=== PATIENT | female | born 1960 | race Caucasian/White ===

== ENCOUNTER 2022-06-12 14:12 | Outpatient (REF) | payer MEDICARE, SELFPAY ==
[2022-06-17 11:30] LABS: Enterovirus PCR Negative (Negative); Specimen Source HAND
== END 2022-06-12 14:13 | disposition home or self-care (01) ==
LOC: NCHCN 14:12
PROVIDERS: Visit Provider Physician Assistant Medical
DX: R21 Rash and other nonspecific skin eruption (principal); L27.1 Localized skin eruption due to drugs and medicaments taken internally
CPT/HCPCS: 86695; 86696; 87498

== ENCOUNTER 2022-06-13 17:35 | Outpatient (REF) | payer MEDICARE, SELFPAY ==
[2022-06-14 14:47] LABS: HSV 1 DNA Result Negative (Negative); HSV 2 DNA Result Negative (Negative); Varicella Zoster DNA Result Negative ((See Note))
== END 2022-06-13 17:36 | disposition home or self-care (01) ==
LOC: LBN 17:35
PROVIDERS: Visit Provider Physician Assistant Medical
DX: R21 Rash and other nonspecific skin eruption (principal)
CPT/HCPCS: 87529; 87798

== ENCOUNTER 2022-09-10 15:32 | Outpatient (REF) | payer MEDICARE, SELFPAY ==
[2022-09-10 14:14] LABS: Abs Immature Grans 0.02 10^3/uL (0.0-0.06); Absolute Basophil Count 0.05 10^3/uL (0.0-0.2); Absolute Eosinophil Count 0.21 10^3/uL (0.0-0.7); Absolute Lymphocyte Count 1.71 10^3/uL (1.2-3.4); Absolute Monocyte Count 0.45 10^3/uL (0.1-0.8); Basophils % 0.8; Eosinophils % 3.2; HGB 13.9 g/dL (11.2-15.7); Immature Grans % 0.3; Lymphocytes % 25.8; MCH 30.2 pg (27.0-33.0); MCHC 33.9 % (32.0-36.0); MCV 89 fL (80-95); MPV 10.8 fL (8.0-11.0); Monocytes % 6.8; Neutrophils % 63.1; Platelet Count 241 10^3/uL (130-400); RBC 4.61 10^6/uL (3.93-5.22); RDW 13.1 % (11.7-14.6); RDW-SD 42.5 fL; WBC 6.64 10^3/uL (4.4-10.8)
[2022-09-10 14:27] LABS: ALT 26 U/L (14-59); AST 14 U/L (15-37); Albumin 4.3 g/dL (3.4-5.0); Alkaline Phosphatase 105 U/L (46-116); Anion Gap 9.5 mmol/L (3-11); BUN 18 mg/dL (7-18); Bilirubin, Total 0.5 mg/dL (0.2-1.0); C-Reactive Protein 0.32 mg/dL (0.0-0.3); CO2 26.5 mmol/L (21.0-32.0); CREATININE 0.7 mg/dL (0.55-1.02); Chloride 105 mmol/L (98-107); Estimated GFR 97.12 (mL/min/1.73m2); Glucose 99 mg/dL (74-106); Potassium 4.1 mmol/L (3.5-5.1); Sodium 141 mmol/L (136-145); Total Protein 7.2 g/dL (6.4-8.2)
[2022-09-10 14:32] LABS: Lipase > 375 U/L (16-77)
== END 2022-09-10 15:33 | disposition home or self-care (01) ==
LOC: LBN 15:32
PROVIDERS: Visit Provider Nurse Practitioner Family
DX: R19.7 Diarrhea, unspecified (principal); R19.4 Change in bowel habit
CPT/HCPCS: 80053; 83690; 85025; 86140

== ENCOUNTER 2022-09-11 14:57 | Emergency (ER) | payer MEDICARE, SELFPAY ==
[2022-09-11 15:08] VITALS: BP 149/62; PULSE 89; RESP 16; O2SAT 97
--- NOTE | 2022-09-11 15:37 | DI.US_ITS ---
Exam(s) US ABDOMEN LIMITED EXAM: US ABDOMEN LIMITED CLINICAL HISTORY: epigastric pain, elevated lipase at urgent care TECHNIQUE: Ultrasound abdomen performed using standard protocol. COMPARISON: No exams were available for comparison FINDINGS: There is no ascites evident. LIVER: Somewhat hyperechoic indicating steatosis. There are no discrete focal hepatic lesions identi fied. GALLBLADDER/BILIARY: There are no gallstones. No gallbladder wall edema nor pericholecystic fluid. The common hepatic duct isnot dilated, measuring 4mm at the level of joni hepatis. PANCREAS: There is no evidence of pancreatic mass nor dilatation of the pancreatic duct. No no perip ancreatic fluid. The pancreas appears unremarkable. RIGHT KIDNEY:There is 7 millimeter echogenic focus at the midpole level-probable calculus. No hydron ephrosis. No cysts nor solid masses in the kidney. No perinephric fluid IMPRESSION: 1. No evidence of cholelithiasis nor dilatation of the biliary tree. 2. Hepatic steatosis. 3. 7 millimeter nonobstructive calculus in the right kidney. DATA REPOSITORY:
[2022-09-11 16:00] LABS: Abs Immature Grans 0.01 10^3/uL (0.0-0.06); Absolute Basophil Count 0.04 10^3/uL (0.0-0.2); Absolute Eosinophil Count 0.16 10^3/uL (0.0-0.7); Absolute Lymphocyte Count 1.89 10^3/uL (1.2-3.4); Absolute Monocyte Count 0.52 10^3/uL (0.1-0.8); Absolute Neutrophil Count 4.34 10^3/uL (1.2-6.7); Basophils % 0.6; Eosinophils % 2.3; HCT 38.8 % (36.0-46.0); HGB 13.4 g/dL (11.2-15.7); Immature Grans % 0.1; Lymphocytes % 27.2; MCH 30.3 pg (27.0-33.0); MCHC 34.5 % (32.0-36.0); MCV 88 fL (80-95); MPV 10.1 fL (8.0-11.0); Monocytes % 7.5; Neutrophils % 62.3; Platelet Count 225 10^3/uL (130-400); RBC 4.42 10^6/uL (3.93-5.22); RDW 13.2 % (11.7-14.6); RDW-SD 42.8 fL; WBC 6.96 10^3/uL (4.4-10.8)
[2022-09-11 16:14] LABS: ALT 25 U/L (14-59); AST 12 U/L (15-37); Alkaline Phosphatase 88 U/L (46-116); Anion Gap 9.7 mmol/L (3-11); BUN 17 mg/dL (7-18); Bilirubin, Total 0.4 mg/dL (0.2-1.0); CO2 27.3 mmol/L (21.0-32.0); CREATININE 0.8 mg/dL (0.55-1.02); Calcium 9.9 mg/dL (8.5-10.1); Chloride 103 mmol/L (98-107); Estimated GFR 82.74 (mL/min/1.73m2); Glucose 103 mg/dL (74-106); Lipase 166 U/L (16-77); Magnesium 1.8 mg/dL (1.8-2.4); Potassium 3.5 mmol/L (3.5-5.1); Sodium 140 mmol/L (136-145); Total Protein 7.4 g/dL (6.4-8.2)
--- NOTE | 2022-09-11 16:39 | ED.GENADUL_ITS ---
Discharge Plan Disposition Patient Disposition: Home Condition: Good Discharge Details Clinical Impression: Gastroenteritis Primary Care Provider: Unknown,Unknown ED Provider: Mary Chatman Home Meds and New Rx's Prescriptions: No Action metformin 500 mg Tablet 500 mg PO BID atorvastatin 20 mg Tablet 40 mg PO DAILY lorazepam 0.5 mg Tablet 0.5 mg PO DAILY PRN losartan 100 mg Tablet 100 mg PO DAILY fenofibrate 40 mg Tablet 40 mg PO DAILY Discharge Instructions Instructions: Gastroenteritis (ED) Additional Instructions: Call your primary care provider tomorrow to schedule an appointment to follow up on your visit today. Return to the emergency department for new or worsening symptoms. Medical Decision Making 61yo F with HTN, HLD, prediabetes, presenting from urgent care for elevated lipase. Has had 6 days of mild abdominal pain, diarrhea, and nausea with no vomiting. Symptoms have been improving. Vital signs and physical exam reassu ring, no abdominal tenderness on exam (patient reports mild epigastric and LLQ pain). Appears well hydrated. Low suspicion for surgical intraabdominal process, obstruction, etc; unlikely active pancreatitis given lack of tenderness but will evaluated with labs/US. Labs reviewed as below, marginally elevated lipase at 166, CBC & CMP otherwise reassuring, no significant electrolyte abnormalities. UA with no infection, + trace ketones consistent with decreased PO. PO challenged and tolerated well. Patient states she feels okay to go home. Has prescription for zofran already. Discharged home; discharge instructions including return precautions were reviewed with patient who verbalized understanding. All questions were answered and they are in full agreement with the plan. Imaging Data Radiologic Study: Imaging: Ultrasound Lab Data Lab results reviewed: Yes I reviewed the patient's lab results. Lab results narrative: Laboratory Tests Range/Units 09/11/22 09/11/22 15:55 15:55 WBC (4.4-10.8) 10^3/uL 6.96 RBC (3.93-5.22) 10^6/uL 4.42 Hgb (11.2-15.7) g/dL 13.4 Hct (36.0-46.0) % 38.8 MCV (80-95) fL 88 MCH (27.0-33.0) pg 30.3 MCHC (32.0-36.0) % 34.5 RDW (11.7-14.6) % 13.2 Plt Count (130-400) 10^3/uL 225 MPV (8.0-11.0) fL 10.1 Immature Gran % 0.1 Neutrophils % 62.3 Lymphocytes % 27.2 Monocytes % 7.5 Eosinophils % 2.3 Basophils % 0.6 Nucleated RBC % (0.0-0.3) % 0.0 Absolute Neutrophils (1.2-6.7) 10^3/uL 4.34 Absolute Lymphocytes (1.2-3.4) 10^3/uL 1.89 Absolute Monocytes (0.1-0.8) 10^3/uL 0.52 Absolute Eosinophils (0.0-0.7) 10^3/uL 0.16 Absolute Basophils (0.0-0.2) 10^3/uL 0.04 Sodium (136-145) mmol/L 140 Potassium (3.5-5.1) mmol/L 3.5 Chloride (98-107) mmol/L 103 Carbon Dioxide (21.0-32.0) mmol/L 27.3 Anion Gap (3-11) mmol/L 9.7 BUN (7-18) mg/dL 17 Creatinine (0.55-1.02) mg/dL 0.8 Est GFR (CKD-EPI 2020) (mL/min/1.73m2) 82.74 Glucose (74-106) mg/dL 103 Calcium (8.5-10.1) mg/dL 9.9 Magnesium (1.8-2.4) mg/dL 1.8 Total Bilirubin (0.2-1.0) mg/dL 0.4 AST (15-37) U/L 12 L ALT (14-59) U/L 25 Alkaline Phosphatase (46-116) U/L 88 Total Protein (6.4-8.2) g/dL 7.4 Albumin (3.4-5.0) g/dL 4.0 Lipase (16-77) U/L 166 H HPI General Mode of arrival: ambulatory . Date/Time Provider Initiated Documentation: 09/11/22 15:13 . Limitations to Documentation: no limitations . Information obtained by: patient . HPI Narrative: 61yo F with HTN, HLD, prediabetes, breast cancer s/p lumpectomy and radiation, presenting from urgent care for elevated lipase. Presented there for 6 days of diarrhea with associated mild abdominal pain as well as nausea. Non-bloody stool. Diarrhea has become less frequent, 1-2 times a day. Abdominal pain is epigastric and her LLQ, non-radiating, 2/10, improving. Has nausea, no vomiti ng, does have decreased PO. Has been doing okay with fluids. No dysuria, hematuria, or fevers. Feels generally unwell and a little lightedheaded when standing, no syncope. No known sick contacts but a stomach bug has been going around her apartment building. She is otherwise in her usual state of health with no rash, chest pain, shortness of breath, LE edema, or other concerrns. Related Data Home Medications Medication Instructions Recorded Confirmed atorvastatin 20 mg tablet 40 mg PO DAILY 09/11/22 09/11/22 fenofibrate 40 mg tablet 40 mg PO DAILY 09/11/22 09/11/22 lorazepam 0.5 mg tablet 0.5 mg PO DAILY PRN 09/11/22 09/11/22 losartan 100 mg tablet 100 mg PO DAILY 09/11/22 09/11/22 metformin 500 mg tablet 500 mg PO BID 09/11/22 09/11/22 Allergies Allergy/AdvReac Type Severity Reaction Status Date / Time gabapentin AdvReac Severe Unverified 09/11/22 15:17 trazodone AdvReac Intermediate Unverified 09/11/22 15:17 General Stated Complaint: Abd Prob JAMISON: 3 Review of Systems Narrative: see HPI PFSH All Active Problems (Updated 09/11/22 @ 17:32 by Mary Chatman MD) Gastroenteritis (Acute) Social History Smoking/Tobacco Use Status: Current every day Tobacco Type: cigarettes Smoking risk assessment performed?: Yes Alcohol Intake: current Substance use type: does not use Housing: apartment Do you feel safe at home: Yes Do you feel safe in your relationship?: Yes Additional Social history: lots of drug activity outside of apartment. Feels unsafe becasue of this Exam Narrative Exam Narrative: General: Alert, well appearing, well nourished, in no acute distress. Head: Normocephalic, atraumatic Neck: Trachea midline, Neck supple. ENT: MMM. No oropharyngeal lesions or exudate. Cardiac: RRR, no murmurs appreciated Resp: No respiratory distress. CTAB. Abd: Soft, non-distended, nontender : No suprapubic tenderness. No CVA tenderness. Extremities: No deformities. No peripheral edema. Neurologic: GCS 15. Moves all extremities freely against gravity Course Vital Signs Vital signs: Vital Signs Pulse 89 09/11/22 15:08 Respiratory Rate 16 09/11/22 15:08 Blood Pressure 149/62 H 09/11/22 15:08 Pulse Oximetry 97 09/11/22 15:08 Pulse 89 09/11/22 15:08 Respiratory Rate 16 09/11/22 15:08 Respiratory Effort Normal, Non-Labored 09/11/22 15:11 Blood Pressure 149/62 H 09/11/22 15:08 Pulse Oximetry 97 09/11/22 15:08 Oxygen Delivery Method Room Air 09/11/22 15:08 Oxygen Flow Rate 0 09/11/22 15:08 Pain Level 2 09/11/22 15:08 Lab/Test Results Lab/Test Results: Laboratory Tests Range/Units 09/11/22 09/11/22 15:55 15:55 WBC (4.4-10.8) 10^3/uL 6.96 RBC (3.93-5.22) 10^6/uL 4.42 Hgb (11.2-15.7) g/dL 13.4 Hct (36.0-46.0) % 38.8 MCV (80-95) fL 88 MCH (27.0-33.0) pg 30.3 MCHC (32.0-36.0) % 34.5 RDW (11.7-14.6) % 13.2 Plt Count (130-400) 10^3/uL 225 MPV (8.0-11.0) fL 10.1 Immature Gran % 0.1 Neutrophils % 62.3 Lymphocytes % 27.2 Monocytes % 7.5 Eosinophils % 2.3 Basophils % 0.6 Nucleated RBC % (0.0-0.3) % 0.0 Absolute Neutrophils (1.2-6.7) 10^3/uL 4.34 Absolute Lymphocytes (1.2-3.4) 10^3/uL 1.89 Absolute Monocytes (0.1-0.8) 10^3/uL 0.52 Absolute Eosinophils (0.0-0.7) 10^3/uL 0.16 Absolute Basophils (0.0-0.2) 10^3/uL 0.04 Sodium (136-145) mmol/L 140 Potassium (3.5-5.1) mmol/L 3.5 Chloride (98-107) mmol/L 103 Carbon Dioxide (21.0-32.0) mmol/L 27.3 Anion Gap (3-11) mmol/L 9.7 BUN (7-18) mg/dL 17 Creatinine (0.55-1.02) mg/dL 0.8 Est GFR (CKD-EPI 2020) (mL/min/1.73m2) 82.74 Glucose (74-106) mg/dL 103 Calcium (8.5-10.1) mg/dL 9.9 Magnesium (1.8-2.4) mg/dL 1.8 Total Bilirubin (0.2-1.0) mg/dL 0.4 AST (15-37) U/L 12 L ALT (14-59) U/L 25 Alkaline Phosphatase (46-116) U/L 88 Total Protein (6.4-8.2) g/dL 7.4 Albumin (3.4-5.0) g/dL 4.0 Lipase (16-77) U/L 166 H
[2022-09-11 17:28] LABS: Bilirubin Negative (Negative); Blood Negative (Negative); Clarity Clear (Clear); Glucose Negative (Negative); Ketones Trace mg/dL (Negative); Leukocyte Esterase Negative (Negative); Nitrite Negative (Negative); Specific Gravity 1.025 (1.005-1.025); Urobilinogen 0.2 mg/dL (Up to 0.2); pH 5.5 (5-8)
[2022-09-11 18:00] VITALS: BP 139/75; PULSE 87; RESP 16; O2SAT 96
== END 2022-09-11 18:05 | disposition home or self-care (01) ==
LOC: ER 18:05
PROVIDERS: Emergency Provider Student in an Organized Health Care Education/Training Program
DX: K52.9 Noninfective gastroenteritis and colitis, unspecified (principal)
CPT/HCPCS: 80053; 83690; 99284; 76705; 81003; 83735; 85025; 99283

== ENCOUNTER 2023-02-10 14:59 | Emergency (ER) | payer MEDICARE, SELFPAY ==
[2023-02-10 15:01] VITALS: BP 190/74; PULSE 96; RESP 20; TEMP 36.4; O2SAT 99
--- NOTE | 2023-02-10 15:43 | ED.GENADUL_ITS ---
Discharge Plan Disposition Patient Disposition: Home Discharge Details Clinical Impression: URI (upper respiratory infection), Otitis media Primary Care Provider: Vincenzo Piña ED Provider: Jermaine Desai Home Meds and New Rx's Prescriptions: New azithromycin 250 mg tablet See Rx Instructions .ROUTE .COMPLEX Qty: 6 0RF Rx Instructions: For 250 mg dose pack: take 500 mg today (day 1), then 250 mg for 4 days (days 2-5) Continued albuterol sulfate 90 mcg/actuation HFA aerosol inhaler 2 puff inhalation Q6H PRN (Reason: shortness of breath or wheezing) Qty: 8.5 6RF fenofibrate nanocrystallized 48 mg tablet 48 mg PO DAILY Qty: 90 3RF atorvastatin 40 mg tablet 40 mg PO QHS Qty: 90 3RF losartan 100 mg tablet 100 mg PO DAILY Qty: 90 3RF metformin 500 mg tablet 500 mg PO BID Qty: 180 3RF lorazepam 0.5 mg Tablet 0.5 mg PO DAILY PRN Discharge Instructions Instructions: Ear Infection (ED), Upper Respiratory Infection (ED) Additional Instructions: You may continue to use [id number] pain medication or cough and cold medication that matches your symptoms. You may hold off on starting antibiotic for the next 24 hours but if your symptoms do not improve please start the medication and take as prescribed. Return to the emergency department for any new or significant worsening of symptoms otherwise follow-up with your primary care provider if not improving in the next week. Referrals: Vincenzo Piña DO [Primary Care Provider] - Medical Decision Making Patient presenting to the emergency department for chief complaint of right ear pain. She reports yesterday evening she started having significant tinnitus and then decreased hearing started. Patient does state yesterday morning that she started also having nasal congestion, mild sore throat, and intermittent cough. Patient has significant past medical history of breast cancer in remission, anxiety, and prediabetes. Physical exam shows stable appearing patient that is afebrile, tachycardia noted slightly on vital signs but not upon my assessment, no signs of distress, patient does have some clear fluid behind left TM and slight purulent fluid noted behind right. Exam is otherwise noncontributory with no obvious findings. I suspect viral illness but early otitis media is also considered. Will perform COVID flu RSV testing and pending results will give ibuprofen. Patient negative for COVID flu RSV. Will recommend conservative management of viral type symptoms but given purulent drainage but no loss of landmarks do not feel that pocket prescription may be beneficial to patient if not improving in the next 24 hours. Patient stated clear understanding of recommendation to attempt conservative management and if this resolves her symptoms that she does not need to start the antibiotic otherwise we will start the antibiotic and take full course. Patient does have penicillin allergy so given Z-Everardo. after discussion of diagnosis and plan of care patient has no further needs, questions, or concerns and states clear understanding to return to the emergency department for any worsening symptoms. This documentation was generated using [employer] system, please disregard any oddities of phrase or misspellings. Lab Data Lab results reviewed: Yes I reviewed the patient's lab results. HPI General Mode of arrival: ambulatory . Date/Time Provider Initiated Documentation: 02/10/23 15:05 . Limitations to Documentation: no limitations . Information obtained by: patient and RN notes reviewed . History of Present Illness 62 year old F presents to the emergency department with the chief complaint of Right ear pain, described as moderate, Patient started experiencing this day(s) (1) and it has been constant. Related Data Home Medications Medication Instructions Recorded Confirmed lorazepam 0.5 mg tablet 0.5 mg PO DAILY PRN 09/11/22 02/10/23 albuterol sulfate 90 mcg/actuation 2 puff inhalation Q6H PRN 01/28/23 02/10/23 aerosol inhaler shortness of breath or wheezing #8.5 grams atorvastatin 40 mg tablet 40 mg PO QHS #90 tabs 01/28/23 02/10/23 fenofibrate nanocrystallized 48 mg 48 mg PO DAILY #90 tabs 01/28/23 02/10/23 tablet losartan 100 mg tablet 100 mg PO DAILY #90 tabs 01/28/23 02/10/23 metformin 500 mg tablet 500 mg PO BID #180 tabs 01/28/23 02/10/23 azithromycin 250 mg tablet See Rx Instructions PO .COMPLEX #6 02/10/23 tabs Previous Rx's Medication Instructions Recorded albuterol sulfate 90 mcg/actuation 2 puff inhalation Q6H PRN 01/28/23 aerosol inhaler shortness of breath or wheezing #8.5 grams atorvastatin 40 mg tablet 40 mg PO QHS #90 tabs 01/28/23 fenofibrate nanocrystallized 48 mg 48 mg PO DAILY #90 tabs 01/28/23 tablet losartan 100 mg tablet 100 mg PO DAILY #90 tabs 01/28/23 metformin 500 mg tablet 500 mg PO BID #180 tabs 01/28/23 azithromycin 250 mg tablet See Rx Instructions PO .COMPLEX #6 02/10/23 tabs Allergies Allergy/AdvReac Type Severity Reaction Status Date / Time Penicillins Allergy Other (See Unverified 02/10/23 15:06 Comment) gabapentin AdvReac Severe Unverified 02/10/23 15:06 trazodone AdvReac Severe Unverified 02/10/23 15:06 General Stated Complaint: EarProblem JAMISON: 3 Review of Systems Constitutional Constitutional: Denies chills, Reports fever(s), Denies headache(s) and Reports malaise ENT Ears, Nose, Mouth, and Throat: Reports as per HPI, Denies ear discharge, Reports otalgia, Denies headache(s), Reports nasal congestion, Denies neck pain and Reports sore throat Cardiovascular Cardiovascular: Denies chest pain and Denies dyspnea Respiratory Respiratory: Reports cough and Denies dyspnea Musculoskeletal Musculoskeletal: Denies neck pain Integumentary/Breasts Skin/Breast: Denies rash Neurologic Neurologic: Denies headache(s) PFSH All Active Problems (Updated 02/10/23 @ 16:19 by Jermaine Desai NP) Otitis media (Acute) URI (upper respiratory infection) (Acute) Elevated triglycerides with high cholesterol (Acute) COPD (chronic obstructive pulmonary disease) (Chronic) Hyperlipidemia, unspecified (Acute) [facility] - currently taking atorvastatin 40 mg daily - recheck lipids Controlled type 2 diabetes mellitus without complication, without long-term current use of insulin (Chronic) [facility] - currently taking 500 mg metformin BID; last A1C was 6.2 10/10/2021 Primary hypertension (Chronic) [facility] - currently taking high dose losartan Medical History HX: breast cancer Family History Father Alcohol use disorder Cancer Mother Alcohol use disorder Hypertension Sister Asthma Paternal Grandfather Diabetes Social History Smoking/Tobacco Use Status: Current every day Tobacco Type: cigarettes Tobacco: How many years used: 45 Quit status: has quit before Second Hand Exposure: No Smoking risk assessment performed?: Yes Alcohol Intake: never Drug use: Never Substance use type: does not use Adopted: No Caregiver/Support person: No Foster care: No Household members: none Housing: apartment Number of Children: 0 number of grandchildren: 0 Communication Needs: None Education Level: college Do you need help understanding health information?: Rarely current occupation: disabled Pets and animals: Yes (dog 11 months old, cat 11 years old) Pets and animals: cat(s) and dog(s) Sexually active: No Do you think of yourself as: lesbian/kelley/homosexual Current gender identity: female What is your relationship status?: never How often do you talk on the phone with friends or family?: once per week How often do you get together with friends or relatives?: never Do you belong to any clubs or organized social groups?: no Panel score (0-1 are the most socially isolated patients): 0 What type of physical activity do you participate in: walking Duration: 30-45 minutes/day Frequency: daily Marva/Rastafarian: None Seatbelt use: never Helmet use: Yes Drive intox or ride w/intox transit bus driver: No Do you feel safe at home: Yes Do you feel safe in your relationship?: Yes Additional Social history: lots of drug activity outside of apartment. Feels unsafe becasue of this Exam Const General: cooperative, comfortable and no acute distress Orientation: alert and awake [facility] Head: normal to inspection, normocephalic and atraumatic Ears: hearing grossly normal bilaterally, EAC's normal and TM abnormal bulging on the right, wth effusion purulent on the right and with fluid behind the TM on the left; not erythematous and with no loss of landmarks General nose exam: external nose normal Face and sinus: no erythema and sinus tenderness ethmoid and maxillary Mouth: oral mucosae normal, no drooling, no muffled voice and no trismus Throat: posterior oropharynx normal Neck Neck: normal visual inspection, full ROM, no meningeal signs, trachea midline and supple Resp Effort & Inspection: normal respiratory effort and able to speak in complete sentences Auscultation: clear to auscultation bilaterally Cardio Rate: regular rate Rhythm: regular rhythm Heart Sounds: S1 normal, S2 normal, normal S1 and S2, no click, no gallops, no murmurs and no rubs Skin General skin exam: no rashes or lesions noted and dry skin (warm) Neuro General: patient alert, patient awake, patient oriented x3, gait normal and moves all extremities Cognition: normal cognition Speech: speech normal Course Vital Signs Vital signs: Vital Signs Temperature 36.4 C L 02/10/23 15:01 Pulse 96 H 02/10/23 15:01 Respiratory Rate 20 02/10/23 15:01 Blood Pressure 190/74 H 02/10/23 15:01 Pulse Oximetry 99 02/10/23 15:01 Temperature 36.4 C L 02/10/23 15:01 Temperature Source Skin 02/10/23 15:01 Pulse 96 H 02/10/23 15:01 Respiratory Rate 20 02/10/23 15:01 Blood Pressure 190/74 H 02/10/23 15:01 Blood Pressure Position Sitting 02/10/23 15:01 Pulse Oximetry 99 02/10/23 15:01 Oxygen Delivery Method Room Air 02/10/23 15:01 Oxygen Flow Rate 0 02/10/23 15:01 Pain Level 0 02/10/23 15:01
[2023-02-10] MEDS: Ibuprofen 600 MG TAB PO (15:54)
[2023-02-10 15:59] LABS: COVID-19 PCR Negative (Negative); Influenza A PCR Negative (Negative); Influenza B PCR Negative (Negative); RSV PCR Negative (Negative)
[2023-02-10 16:00] LABS: Source Nasopharynx
== END 2023-02-10 16:28 | disposition home or self-care (01) ==
PROVIDERS: Emergency Provider Nurse Practitioner Family; PCP Family Medicine
DX: H65.191 Other acute nonsuppurative otitis media, right ear (principal); J06.9 Acute upper respiratory infection, unspecified
CPT/HCPCS: 87637; 99283; 99284

== ENCOUNTER 2023-07-04 10:23 | Outpatient (RCR) | payer MEDICARE, SELFPAY ==
--- NOTE | 2023-07-04 10:30 | HOLTER_ITS ---
APPROVED REPORT Conclusion This is a 48-hour Holter monitor Predominant rhythm is sinus. Average heart rate was 83. Minimum was 58, maximum 120 There were rare ventricular ectopic beats There were very rare atrial premature beats There was no atrial fibrillation, no SVT, no high-grade AV block, no pauses greater than 3 seconds Patient symptoms were reported which could not be correlated to any dysrhythmia
== END 2023-07-18 23:59 | disposition home or self-care (01) ==
LOC: CARDOPNVT 10:23
PROVIDERS: PCP Family Medicine; Visit Provider Family Medicine
DX: R00.2 Palpitations (principal); Z51.89 Encounter for other specified aftercare
CPT/HCPCS: 93227; 93225; 93226

== ENCOUNTER 2023-07-06 17:42 | Emergency (ER) | payer MEDICARE, SELFPAY ==
[2023-07-06] VITALS (26 sets, daily range): BP systolic 105–170; BP diastolic 50–84; PULSE 66–92; RESP 10–19; TEMP 36.6; O2SAT 95–99
--- NOTE | 2023-07-06 18:00 | RT.EKG_ITS ---
APPROVED REPORT Exam: Resting ECG Reason for Exam: weakness Patient Location: E HR:75 bpm ECG Measurements Heart Rate 75 AXIS GA 145 P 71 QRSd 88 QRS 56 QT 381 T 71 QTc 426 Conclusion Sinus rhythm 75 no stemi
[2023-07-06 18:14] LABS: Bilirubin Small (Negative); Blood Negative (Negative); Clarity Sl Cloudy (Clear); Glucose Negative (Negative); Ketones 15 mg/dL (Negative); Leukocyte Esterase Negative (Negative); Nitrite Negative (Negative); Specific Gravity >= 1.030 (1.005-1.025); Urobilinogen 0.2 mg/dL (Up to 0.2); pH 5.5 (5-8)
[2023-07-06 18:19] LABS: Bacteria Few HPF (Negative); C & S Indicated? No; Casts Negative LPF (Negative); Crystals Mod Calcium Oxalate HPF (Negative); Epithelial Cells Few HPF (Negative); Mucus Moderate (Negative); RBC Negative HPF (0-2); WBC 0-2 HPF (0-5)
[2023-07-06] MEDS: ACETAMINOPHEN 1,000 MG/100 ML BTL 400 MG IVPB (18:42)
[2023-07-06] MEDS: Ondansetron 4 MG/2 ML VIAL IVP (18:43)
[2023-07-06] MEDS: Normal Saline 1,000 ML 1000 ML IV (18:43)
[2023-07-06 18:47] LABS: Abs Immature Grans 0.02 10^3/uL (0.0-0.06); Absolute Basophil Count 0.05 10^3/uL (0.0-0.2); Absolute Eosinophil Count 0.23 10^3/uL (0.0-0.7); Absolute Lymphocyte Count 1.96 10^3/uL (1.2-3.4); Absolute Monocyte Count 0.41 10^3/uL (0.1-0.8); Absolute Neutrophil Count 3.42 10^3/uL (1.2-6.7); Basophils % 0.8 %; Eosinophils % 3.8 %; HCT 38.7 % (36.0-46.0); HGB 13.5 g/dL (11.2-15.7); Immature Grans % 0.3 %; Lymphocytes % 32.2 %; MCH 30.6 pg (27.0-33.0); MCHC 34.9 % (32.0-36.0); MCV 88 fL (80-95); MPV 10.1 fL (8.0-11.0); Monocytes % 6.7 %; Neutrophils % 56.2 %; Platelet Count 217 10^3/uL (130-400); RBC 4.41 10^6/uL (3.93-5.22); RDW 13.2 % (11.7-14.6); RDW-SD 42.5 fL; WBC 6.09 10^3/uL (4.4-10.8)
--- NOTE | 2023-07-06 18:54 | W.ED.GENAD ---
Discharge Plan Disposition Patient Disposition: Home Discharge Details Clinical Impression: Back pain, Calculus, renal, Uterine mass Primary Care Provider: Vincenzo Piña ED Provider: Jennifer Sloan Home Meds and New Rx's Prescriptions: New cyclobenzaprine 10 mg tablet 10 mg PO TID PRNQty: 15 0RF Continued albuterol sulfate 90 mcg/actuation HFA aerosol inhaler 2 puff inhalation Q6H PRN (Reason: shortness of breath or wheezing) Qty: 8.5 6RF fenofibrate nanocrystallized 48 mg tablet 48 mg PO DAILY Qty: 90 3RF atorvastatin 40 mg tablet 40 mg PO QHS Qty: 90 3RF losartan 100 mg tablet 100 mg PO DAILY Qty: 90 3RF metformin 500 mg tablet 500 mg PO BID Qty: 180 3RF lorazepam 0.5 mg Tablet 0.5 mg PO DAILY PRN Discharge Instructions Instructions: Kidney Stones (ED), Back Pain (ED) Additional Instructions: Take the Flexeril, 10 mg every 8 hours as needed for pain, do not combine with alcohol or with any notice of driving I suspect that your back pain is muscular in nature Take Tylenol 650 every 4-6 hours as needed for pain, you may take ibuprofen intermittently but do not take it for longer than 3 days straight Warm compresses, continue moving and walking Light stretching as tolerated Recheck with primary care physician on Friday for reassessment and return earlier should you have new or worsening complaints Referrals: Vincenzo Piña DO [Primary Care Provider] - 2 days HPI General Date/Time Provider Initiated Documentation: 07/06/23 17:45. HPI Narrative: This 62-year-old female presents with right flank and right abdominal pain that started this morning. States feels similar to her prior kidney stones. Denies any chest pain or shortness of breath. Denies any nausea or vomiting. Patient states that Related Data Home Medications Medication Instructions Recorded Confirmed lorazepam 0.5 mg tablet 0.5 mg PO DAILY PRN 09/11/22 07/06/23 albuterol sulfate 90 mcg/actuation 2 puff inhalation Q6H PRN 01/28/23 07/06/23 aerosol inhaler shortness of breath or wheezing #8.5 grams atorvastatin 40 mg tablet 40 mg PO QHS #90 tabs 01/28/23 07/06/23 fenofibrate nanocrystallized 48 mg 48 mg PO DAILY #90 tabs 01/28/23 07/06/23 tablet losartan 100 mg tablet 100 mg PO DAILY #90 tabs 01/28/23 07/06/23 metformin 500 mg tablet 500 mg PO BID #180 tabs 01/28/23 07/06/23 cyclobenzaprine 10 mg tablet 10 mg PO TID PRN #15 tabs 07/06/23 Previous Rx's Medication Instructions Recorded albuterol sulfate 90 mcg/actuation 2 puff inhalation Q6H PRN 01/28/23 aerosol inhaler shortness of breath or wheezing #8.5 grams atorvastatin 40 mg tablet 40 mg PO QHS #90 tabs 01/28/23 fenofibrate nanocrystallized 48 mg 48 mg PO DAILY #90 tabs 01/28/23 tablet losartan 100 mg tablet 100 mg PO DAILY #90 tabs 01/28/23 metformin 500 mg tablet 500 mg PO BID #180 tabs 01/28/23 cyclobenzaprine 10 mg tablet 10 mg PO TID PRN #15 tabs 07/06/23 Allergies Allergy/AdvReac Type Severity Reaction Status Date / Time gabapentin AdvReac Severe Other (See Unverified 07/06/23 17:46 Comment) trazodone AdvReac Severe Other (See Unverified 07/06/23 17:46 Comment) General Stated Complaint: FlankPain JAMISON: 3 Exam Narrative Exam Narrative: Alert and oriented 62-year-old female, right flank pain, paraspinal tenderness appreciated on exam, no acute distress, pupils equal round reactive to light and accommodation, lungs clear to auscultation bilaterally, cardiac rate rhythm regular, distal pulses intact all 4 extremities and strength and sensation intact all 4 extremities, no abdominal bruit or pulsatile mass, no rashes or lesions Course Vital Signs Vital signs: Vital Signs Temperature 36.6 C 07/06/23 17:48 Pulse 92 H 07/06/23 17:48 Respiratory Rate 16 07/06/23 17:48 Blood Pressure 170/75 H 07/06/23 17:48 Pulse Oximetry 99 07/06/23 17:48 Temperature 36.6 C 07/06/23 17:48 Temperature Source Temporal Artery Scan 07/06/23 17:48 Pulse 69 07/06/23 18:34 Pulse 76 07/06/23 18:40 Respiratory Rate 12 07/06/23 18:40 Respiratory Effort Normal, Non-Labored 07/06/23 17:50 Blood Pressure 162/60 H 07/06/23 18:34 Blood Pressure Mean 91 07/06/23 18:34 Blood Pressure Position Sitting 07/06/23 17:48 Pulse Oximetry 95 07/06/23 18:40 Oxygen Delivery Method Room Air 07/06/23 17:48 Oxygen Flow Rate 0 07/06/23 17:48 Pain Level 8 07/06/23 18:42 Comment right flank 07/06/23 17:45 Lab/Test Results Lab/Test Results: Laboratory Tests Range/Units 07/06/23 07/06/23 18:04 18:33 WBC (4.4-10.8) 10^3/uL 6.09 RBC (3.93-5.22) 10^6/uL 4.41 Hgb (11.2-15.7) g/dL 13.5 Hct (36.0-46.0) % 38.7 MCV (80-95) fL 88 MCH (27.0-33.0) pg 30.6 MCHC (32.0-36.0) % 34.9 RDW (11.7-14.6) % 13.2 Plt Count (130-400) 10^3/uL 217 MPV (8.0-11.0) fL 10.1 Immature Gran % % 0.3 Neutrophils % % 56.2 Lymphocytes % % 32.2 Monocytes % % 6.7 Eosinophils % % 3.8 Basophils % % 0.8 Nucleated RBC % (0.0-0.3) % 0.0 Absolute Neutrophils (1.2-6.7) 10^3/uL 3.42 Absolute Lymphocytes (1.2-3.4) 10^3/uL 1.96 Absolute Monocytes (0.1-0.8) 10^3/uL 0.41 Absolute Eosinophils (0.0-0.7) 10^3/uL 0.23 Absolute Basophils (0.0-0.2) 10^3/uL 0.05 Urine Color (Yellow) Yellow Urine Clarity (Clear) Sl Cloudy Urine pH (5-8) 5.5 Ur Specific [place] (1.005-1.025) >= 1.030 H Urine Protein (Neg-Trace) mg/dL 30 H Urine Ketones (Negative) mg/dL 15 H Urine Blood (Negative) Negative Urine Nitrite (Negative) Negative Urine Bilirubin (Negative) Small H Urine Urobilinogen (Up to 0.2) mg/dL 0.2 Ur Leukocyte Esterase (Negative) Negative Urine RBC (0-2) HPF Negative Urine WBC (0-5) HPF 0-2 Ur Epithelial Cells (Negative) HPF Few Urine Crystals (Negative) HPF Mod Calcium Oxalate Urine Bacteria (Negative) HPF Few Urine Casts (Negative) LPF Negative Urine Mucus (Negative) Moderate Ur Culture Indicated? No Urine Glucose (Negative) mg/dL Negative Medical Decision Making This 62-year-old female presents with right back pain, no abdominal bruit or pulsatile mass No acute distress, vitals are stable, received Toradol and Tylenol for discomfort, resting comfortably in room, given age and medical comorbidities with history of stones I did order CT abdomen and pelvis which did not show acute abnormality, patient does have nephrolithiasis without ureterolithiasis, there is also uterine mass which is suspected being a fibroid. Patient has an outpatient ultrasound of her pelvis ordered for further evaluation of this. At this time I think patient's pain is likely musculoskeletal in nature, she has degenerative changes to her lumbar spine, she will be placed on Flexeril and encouraged to take ibuprofen and Tylenol as needed for discomfort. She is encouraged to follow-up with her primary care for this week for reassessment and to return earlier should she have new or worsening complaints. There is no clinical evidence of cauda equina syndrome on today's assessment. Patient is ambulatory with steady gait no acute distress at time of discharge home. Quality:SDOH Health Related Social Needs: No Data to Display PFSH All Active Problems (Updated 07/06/23 @ 21:28 by DENISSE Cooney) Uterine mass (Acute) Calculus, renal (Chronic) Back pain (Acute) Current smoker (Acute) Elevated triglycerides with high cholesterol (Acute) COPD (chronic obstructive pulmonary disease) (Chronic) Hyperlipidemia, unspecified (Acute) [facility] - currently taking atorvastatin 40 mg daily - recheck lipids Controlled type 2 diabetes mellitus without complication, without long-term current use of insulin (Chronic) [facility] - currently taking 500 mg metformin BID; last A1C was 6.2 10/10/2021 Primary hypertension (Chronic) [facility] - currently taking high dose losartan Medical History HX: breast cancer Family History Father Alcohol use disorder Cancer Mother Alcohol use disorder Hypertension Sister Asthma Paternal Grandfather Diabetes Social History Smoking/Tobacco Use Status: Current every day Tobacco Type: cigarettes Tobacco: How many years used: 45 Quit status: has quit before Second Hand Exposure: No Smoking risk assessment performed?: Yes Alcohol Intake: never Drug use: Never Substance use type: does not use Adopted: No Caregiver/Support person: No Foster care: No Household members: none Housing: apartment Number of Children: 0 number of grandchildren: 0 Communication Needs: None Education Level: college Do you need help understanding health information?: Rarely current occupation: disabled Pets and animals: Yes (dog 11 months old, cat 11 years old) Pets and animals: cat(s) and dog(s) Sexually active: No Do you think of yourself as: lesbian/kelley/homosexual Current gender identity: female What is your relationship status?: never How often do you talk on the phone with friends or family?: once per week How often do you get together with friends or relatives?: never Do you belong to any clubs or organized social groups?: no Panel score (0-1 are the most socially isolated patients): 0 What type of physical activity do you participate in: walking Duration: 30-45 minutes/day Frequency: daily Marva/Jainism: None Seatbelt use: never Helmet use: Yes Drive intox or ride w/intox warehouse driver: No Do you feel safe at home: Yes Do you feel safe in your relationship?: Yes Additional Social history: lots of drug activity outside of apartment. Feels unsafe becasue of this
[2023-07-06 19:06] LABS: ALT 31 U/L (14-59); AST 11 U/L (15-37); Albumin 4.1 g/dL (3.4-5.0); Alkaline Phosphatase 101 U/L (46-116); BUN 11 mg/dL (7-18); Bilirubin, Total 0.4 mg/dL (0.2-1.0); CREATININE 0.8 mg/dL (0.55-1.02); Calcium 9.3 mg/dL (8.5-10.1); Chloride 104 mmol/L (98-107); Estimated GFR 82.23 (mL/min/1.73m2); Glucose 104 mg/dL (74-106); Lipase 123 U/L (16-77); Potassium 3.9 mmol/L (3.5-5.1); Sodium 141 mmol/L (136-145); Total Protein 7.1 g/dL (6.4-8.2)
--- NOTE | 2023-07-06 19:15 | DI.CT_ITS ---
Exam(s) CT ABDOMEN PELVIS W EXAM: CT ABDOMEN PELVIS W CLINICAL HISTORY: ruq and flank pain. TECHNIQUE: Imaging Protocol: Axial computed tomography images with coronal and sagittal reformatted images were created and reviewed CONTRAST MATERIAL: Intravenous: Omnipaque-350 100cc Oral: None COMPARISON: No exams were available for comparison FINDINGS: VISUALIZED LUNG BASES: No nodules nor pleural effusions evident. ABDOMEN: There is no ascites. LIVER: There are no focal hepatic lesions evident. No dilated intrahepatic ducts. GALLBLADDER/BILIARY: No obvious gallbladder pathology. CBD is not dilated. PANCREAS: No evidence of pancreatic mass nor dilatation of the pancreatic duct. SPLEEN: Spleen is not enlarged. No obvious intrasplenic lesions. Splenic and portal veins are paten t. ADRENALS: There are no significant adrenal masses. KIDNEYS:There is a 7 x 5 mm calculus in the medial cortex region of the right kidney. No calculi in left kidney. No hydronephrosis nor hydroureter nor calculi in the urinary bladder. There are few sm all sub cm cortical cyst in the right kidney which do not require further imaging workup. No solid r enal masses evident.. ABDOMINAL AORTA: Atherosclerotic but not enlarged. Iliac arteries are also atherosclerotic but nonen larged. LYMPH NODES:There is no retroperitoneal nor paraaortic adenopathy. ABDOMINAL WALL: No evidence of significant anterior abdominal wall nor inguinal hernia. GI: There are few slightly prominent left-sided small bowel loops noted. These measure up to 3.2 cm. Difficult to identify a transition point and there is no collapse of more distal small bowel nor of the colon and no ascites. PELVIS: GI: No evidence of appendicitis.No evidence of sigmoid diverticulitis. LYMPH NODES: There is no intrapelvic nor inguinal adenopathy. REPRODUCTIVE: There is a 2.8 x 2.8 cm mass in left side of the uterus probably fibroid. Visualize ov elisa appear age-appropriate. No free fluid evident. URINARY BLADDER: No calculi nor obvious masses evident OSSEOUS: No fractures. Chronic disc space narrowing mid-lower lumbar spine. No listhesis. No pars defects. No osseous lesions. IMPRESSION: 1. Nonobstructive calculi right kidney. No dilatation of the urinary tracts. No calculi seen in the urinary bladder. 2. No evidence of appendicitis nor diverticulitis. 3. There is a 2.8 by 2.8 cm mass in left side of the uterus which is probably a fibroid. Recommend f ollow-up ultrasound. 4. There are few slightly dilated left-sided small bowel loops. However, there is no high-grade brenton l obstruction evident. No ascites. RADIATION DOSE DELIVERED: 809.16mGy.cm Total DLP DATA REPOSITORY: All CT scans at this facility are submitted to the National Radiology Data Registry (NRDR) Dose Index Registry (DIR) with the [employer] (ACR). RADIATION OPTIMIZATION: All CT scans at this facility use at least one of these dose optimization te chniques: automated exposure control; mA and/or kV adjustment per patient size (includes targeted exa ms where dose is matched to clinical indication); or iterative reconstruction.
[2023-07-06] MEDS: Omnipaque 350 MG/ML 100 ML BTL IJ (19:59)
[2023-07-06] MEDS: Normal Saline - Diluent 50 ML VIAL IJ (20:05)
[2023-07-06] MEDS: Metoclopramide 10 MG/2 ML VIAL 5 MG IVP (20:15)
--- NOTE | 2023-07-06 21:08 | DI.VRAD_ITS ---
PROCEDURE INFORMATION: Exam: CT Abdomen And Pelvis With Contrast Exam date and time: 07/06/2023 7:55 PM Age: 62 years old Clinical indication: Abdominal pain; Right upper quadrant (ruq); Patient HX: Ruq and R flank pain TECHNIQUE: Imaging protocol: Computed tomography of the abdomen and pelvis with contrast. Radiation optimization: All CT scans at this facility use at least one of these dose optimization techniques: automated exposure control; mA and/or kV adjustment per patient size (includes targeted exams where dose is matched to clinical indication); or iterative reconstruction. Contrast material: OMNIPAQUE 350; Contrast volume: 100 ml; Contrast route: INTRAVENOUS (IV); COMPARISON: US ABDOMEN LIMITED 09/11/2022 3:47 PM FINDINGS: Lungs: Visualized lung bases are clear. Heart: Heart size normal. Esophagus: The visualized distal esophagus is largely contracted without gross abnormality. Liver: Normal contour. No mass lesions. No intrahepatic biliary ductal dilatation. Gallbladder and bile ducts: Normal. No calcified stones. No ductal dilation. Pancreas: Normal. No inflammatory changes or ductal dilation. Spleen: Normal. No splenomegaly. Adrenal glands: Normal. No adrenal mass. Kidneys and ureters: 7 mm nonobstructive right renal stone with a few additional small 1-2 mm stones in the lower pole.There are bilateral renal cortical lesions demonstrating low density values and circumscribed margins favoring simple renal cysts for which no further imaging evaluation is required. Question slight right caliectasis without ureterectasis. No ureteral stones are identified. This might represent mild residual changes of a recently passed stone. Stomach and bowel: The stomach is unremarkable. The small bowel is nondilated with no gross abnormality. No acute colonic abnormalities. Mild distal colonic diverticulosis without diverticulitis. Appendix: The appendix is normal in caliber and demonstrates no evidence of appendicitis. Intraperitoneal space: No peritoneal free fluid or air. Vasculature: No acute process. No abdominal aortic aneurysm. Moderate atherosclerosis. Lymph nodes: No adenopathy. Urinary bladder: Unremarkable as visualized. Reproductive: 2.7 x 1.8 x 2.8 cm masslike focus most suggestive of subserosal fibroid at the leftward fundal uterine margin, although this also abuts the left ovary. Recommend nonemergent pelvic ultrasound or pelvic MRI to confirm uterine origin/fibroid features. Bones/joints: No acute osseous abnormalities. Osteopenia. Moderate-severe lumbar disc degenerative changes at L1-L2, L3-L4, L4-L5, and L5-S1. Mild leftward convexity lumbar scoliosis. Soft tissues: Unremarkable. IMPRESSION: 1. There are 3 nonobstructive right renal stones present measuring up to 7 mm in size. No ureteral stones are identified currently although there is slight right-sided caliectasis which might represent residual changes of a recently passed stone. 2. Mild colonic diverticulosis without diverticulitis. 3. Small mass in the leftward fundal uterine margin measuring up to 2.8 cm is probably a subserosal fibroid, however it also abuts the left ovary. Recommend nonemergent pelvic ultrasound or MRI to confirm uterine versus ovarian origin. No adenopathy. 4. Additional nonemergent findings detailed above. Dictated and Authenticated by: Aníbal Bryan MD. Ordering:TIAGO Rodriguez MD
[2023-07-06] MEDS: Cyclobenzaprine 10 MG TAB, 3 TABS/BTL PO (21:40)
--- NOTE | 2023-07-06 23:28 | NUR.NOTE ---
Pelvic ultrasound requisition faxed to [facility] to be done in 1-2 weeks. Patient given Pelvic Ultrasound instruction sheet. Patient advised to call [facility] Scheduling 07/07/23 anytime after 7am.Nursing Note:
== END 2023-07-06 21:41 | disposition home or self-care (01) ==
PROVIDERS: Emergency Medicine; Emergency Provider Physician Assistant; PCP Family Medicine
DX: M54.50 Low back pain, unspecified (principal); N20.0 Calculus of kidney; N85.8 Other specified noninflammatory disorders of uterus; J44.9 Chronic obstructive pulmonary disease, unspecified; E78.5 Hyperlipidemia, unspecified; I10 Essential (primary) hypertension; E11.9 Type 2 diabetes mellitus without complications; Z79.84 Long term (current) use of oral hypoglycemic drugs; F17.210 Nicotine dependence, cigarettes, uncomplicated; Z79.899 Other long term (current) drug therapy
CPT/HCPCS: 36415; 80053; 83690; 93005; 96361; 96365; 96375; 99285; 74177; 81003; 81015; 85025; 93010; 99284; J0131; J2405; J2765; J3490

== ENCOUNTER → 2023-07-07 12:56 | Outpatient (CLI) | payer MEDICARE, SELFPAY ==
--- NOTE | 2023-07-07 | DI.US_ITS ---
Exam(s) US PELVIS TRANSVAGINAL EXAM: US PELVIS TRANSVAGINAL CLINICAL HISTORY: Uterine mass TECHNIQUE: Ultrasound of the pelvis was performed both transabdominal and transvaginal. COMPARISON: US US ABDOMEN LIMITED from 09/11/[address] ABDOMEN PELVIS W from 07/06/2023 FINDINGS: UTERUS: Nongravid and anteverted Measures 5 cm length x 2 cm AP x 4.5 cm wide. There is a left-sided uterine fibroid measuring approximately 2.6 x 2.0 x 2.1 cm, this correspond to what is seen on the ultrasound.Another smaller 2 x 1.9 of cm fibroid is noted posteriorly in the myom etrium. Endometrial thickness measures 4 mm. There is no fluid in the endometrial canal. CERVIX: There are no obvious nabothian cysts. RIGHT OVARY: Not visualized LEFT OVARY: Measures 2.1 x 1.2 x 2.1 cm cm No significant cysts nor masses evident in the left ovary. CUL-DE-SAC: No free fluid evident. IMPRESSION: 1. There are 2 uterine fibroids. The larger of the 2 measures 2.6 x 2.0 x 2.1 cm, is left-sided, and corresponds to the finding on CT scan earlier today. The smaller fibroid is located posteriorly. E ndometrial thickness is upper normal. 2. No abnormal ovarian findings. Right ovary not seen. Left ovary unremarkable. 3. No free fluid evident in the adnexal regions and cul-de-sac. DATA REPOSITORY:
== END ==
PROVIDERS: PCP Family Medicine; Visit Provider Physician Assistant
DX: D25.1 Intramural leiomyoma of uterus (principal)
CPT/HCPCS: 76830; 76856